=== PATIENT | female | born 1965 | race Caucasian/White ===

== ENCOUNTER → 2017-06-27 07:28 | Outpatient (CLI) | payer BC, SELFPAY | PROVIDERS: Family Provider Family Medicine; PCP Family Medicine; Visit Provider Surgery | DX: Z00.00 Encounter for general adult medical examination without abnormal findings (principal) ==

== ENCOUNTER → 2018-10-12 09:11 | Outpatient (CLI) | payer BC, SELFPAY ==
--- NOTE | 2018-10-12 09:22 | RAD_ITS ---
STUDY: AIR-CONTRAST UPPER GI SERIES. REASON FOR EXAM: Female, 52 years old. Patient has a history of gastroesophageal reflux and esophagitis. FLUOROSCOPY TIME (if supplied): (0:52) minutes/seconds. 20 images were obtained. TECHNIQUE: The patient ingested barium. Multiple images of the esophagus, stomach and duodenum were obtained. COMPARISON: None. FINDINGS: The esophagus is unremarkable. There is no evidence of mass lesion. No evidence of gastroesophageal reflux. No ulceration is present. The stomach and duodenum are unremarkable. No evidence of ulceration. No mass lesion is seen. RAD/Upper GI Series Only IMPRESSION: Unremarkable air-contrast upper GI series. Electronically Signed: Shadi Berrios, at 13:32 EDT , Service support ,
== END ==
LOC: RAD 09:13
PROVIDERS: Family Provider Family Medicine; PCP Family Medicine; Referring Provider Nurse Practitioner Adult Health; Visit Provider Nurse Practitioner Adult Health
DX: R09.89 Other specified symptoms and signs involving the circulatory and respiratory systems (principal)
CPT/HCPCS: 74246